=== PATIENT | male | born 1945 | race Caucasian/White ===

== ENCOUNTER 2022-08-18 10:36 | Emergency (ER) | payer MEDICARE, BC ==
[~2022-08-18] VITALS: Ht 175.3 cm; Wt 72.6 kg
[2022-08-18] MEDS ORDERED: SILVER NITRATE APPLICATOR STICK EACH TP ONE ×2 (10:45→10:48)
[2022-08-18] MEDS ORDERED: TRANEXAMIC ACID 1,000 MG/10 ML VIAL ONE (10:55)
[2022-08-18] MEDS ORDERED: TRANEXAMIC ACID 1,000 MG/10 ML VIAL IR ONE (11:00)
[2022-08-18] MEDS ORDERED: LOSA50TA39 PO (11:04)
[2022-08-18] MEDS ORDERED: TRAN10TA2 PO (11:04)
[2022-08-18] MEDS ORDERED: HYDR25TA4 PO (11:04)
[2022-08-18] MEDS ORDERED: LIDOCAINE HCL 2% 20 ML VIAL ONE (11:16)
[2022-08-18] MEDS ORDERED: LIDOCAINE HCL 2% 20 ML VIAL IJ ONE (11:30)
--- NOTE | 2022-08-18 11:30 | NUR ---
Patient wants to leave now, MD notified.
[2022-08-18 11:33] VITALS: BP 135/89
--- NOTE | 2022-08-18 11:33 | NUR ---
Patient discharged to home in stable condition. Written and verbal after care instructions given. Patient verbalizes understanding of instructions. Stressed follow up or return to ER for worsening s/s.
== END 2022-08-18 11:32 | disposition home or self-care (01) ==
LOC: ER 10:36
DX: R04.0 Epistaxis (principal); Z88.0 Allergy status to penicillin; Z88.8 Allergy status to other drugs, medicaments and biological substances; Z91.041 Radiographic dye allergy status
CPT/HCPCS: 99283; 30901; J3490; A4663